=== PATIENT | female | born 1995 | race Caucasian/White ===

== ENCOUNTER 2019-03-06 07:20 | Emergency (ER) | payer OTHER ==
[~2019-03-06] VITALS: Ht 157.5 cm; Wt 90.7 kg
[2019-03-06] MEDS ORDERED: AMIT50 PO (07:40)
[2019-03-06] MEDS ORDERED: LITH300C PO (07:41)
[2019-03-06] MEDS ORDERED: DULO60 PO (07:41)
[2019-03-06] MEDS ORDERED: GABA600 (07:41)
[2019-03-06] MEDS ORDERED: Zantac150 MG (07:42)
[2019-03-06] MEDS ORDERED: ONDA8 (07:42)
[2019-03-06 07:55] LABS: Source, Urine Clean Catch
[2019-03-06 07:59] LABS: Bilirubin, Urine Neg (Neg); Blood, Urine Neg (Neg); Glucose Qualitative, Urine Neg (Neg); Ketones, Urine Neg (Neg); Leukocyte Esterase, Urine Neg (Neg); Nitrite, Urine Neg (Neg); Protein, Urine Neg (Neg); Urobilinogen, Urine NORM (Normal)
[2019-03-06 08:00] LABS: Color, Urine Yellow (P-Yellow)
[2019-03-06 08:01] LABS: Appearance, Urine Clear (Clear)
[2019-03-06] MEDS ORDERED: ONDA4ODT MM (08:24)
[2019-03-06] MEDS ORDERED: Polytrim Eye Dr10 ML BOTHEYES (08:24)
[2019-03-06] MEDS ORDERED: Cheratussin AC118 ML PO (08:24)
[2019-03-06] MEDS ORDERED: Flonase 0.05% N16 GM (08:24)
== END 2019-03-06 08:38 | disposition home or self-care (01) ==
LOC: ER 07:20
PROVIDERS: Physician Assistant
DX: J06.9 Acute upper respiratory infection, unspecified (principal); H10.9 Unspecified conjunctivitis; J43.9 Emphysema, unspecified; Z87.891 Personal history of nicotine dependence; Z91.040 Latex allergy status; Z91.030 Bee allergy status; Z91.018 Allergy to other foods; Z79.899 Other long term (current) drug therapy
CPT/HCPCS: 81003; 81025; 87077; 87081; 87185; 87430; 96374; 99283-25; J1100